=== PATIENT | female | born 1960 | race American Indian/Alaskan Native ===

== ENCOUNTER 2016-03-23 13:16 | Emergency (ER) | payer OTHER ==
[2016-03-23 13:48] VITALS: BP 146/91
== END 2016-03-23 13:46 | disposition left against medical advice (07) ==
LOC: ED 13:16
DX: R03.0 Elevated blood-pressure reading, without diagnosis of hypertension (principal); Z53.21 Procedure and treatment not carried out due to patient leaving prior to being seen by health care provider